=== PATIENT | male | born 1990 | race African-American/Black ===

== ENCOUNTER 2017-02-25 16:43 | Emergency (ER) | payer OTHER ==
[~2017-02-25] VITALS: Ht 172.7 cm; Wt 65.0 kg
[2017-02-25 16:45] VITALS: BP 142/90
== END 2017-02-25 20:09 | disposition left against medical advice (07) ==
LOC: ER 17:16
DX: Z53.21 Procedure and treatment not carried out due to patient leaving prior to being seen by health care provider (principal)

== ENCOUNTER 2019-02-06 12:02 | Emergency (ER) | payer MEDICAID, OTHER ==
[~2019-02-06] VITALS: Ht 172.7 cm; Wt 73.0 kg
[2019-02-06 12:04] VITALS: BP 136/82
== END 2019-02-06 16:49 | disposition left against medical advice (07) ==
LOC: ER 12:02
DX: Z53.21 Procedure and treatment not carried out due to patient leaving prior to being seen by health care provider (principal)